=== PATIENT | female | born 1980 ===

== ENCOUNTER 2021-10-15 21:07 | Emergency (ER) | payer OTHER ==
[2021-10-15 21:16] VITALS: BP 136/98
[2021-10-15] MEDS ORDERED: methylPREDNISolone Sod Succinate 125 MG/2 ML INJ IM ONE (21:40)
[2021-10-15] MEDS ORDERED: FAMOTIDINE 20 MG TAB PO ONE (21:40)
[2021-10-15] MEDS ORDERED: hydrOXYzine PAMOATE 25 MG CAP PO ONE (21:40)
--- NOTE | 2021-10-15 23:14 | Emergency Department Report ---
ED Allergic Reaction HPI - General Chief complaint: Allergic Reaction Stated complaint: RASH/HIVES Source: patient Mode of arrival: Ambulatory Limitations: No Limitations - History of Present Illness Initial Comments: Patient is a 40-year-old female with no past medical history presented to the ED with complaint of acute onset persistent diffuse itchy erythematous maculopapular rashes for the last 2 months intermittently, worse in the last 24 hours. Patient states that she has been taking [id number] medications with no relief. Patient states that she has yet to identify the etiology of these rashes that appear to be intermittent, causing significant hives all over her body. Patient states that in the last 4 hours, the symptoms have worsened such that she has not been able to sleep or function. Patient states that she is currently visiting [place] for training for her job but resides in [place]. Patient denies dizziness, syncope, chest pain or shortness of breath, wheezing or cough, nausea and vomiting, diarrhea, abdominal pain, swollen lips or swollen tongue, dysphagia or dysphonia, facial swelling, nasal and sinus congestion, fever and chills. MD Complaint: allergic reaction, hives, other (Diffuse itchy erythematous maculopapular rashes) -: Sudden, month(s) (2) Exposure: unknown Symptoms: rash, itching. denies: facial swelling, lip swelling, difficulty swallowing, difficulty breathing, orolingual swelling, syncopy, dizziness, nausea, vomiting, other, abdominal pain Severity: severe Treatment Prior to Arrival: other (Zyrtec) Previous Allergy History: none - Related Data Previous Rx's Medication Instructions Recorded Last Taken Type Famotidine [Pepcid] 20 mg PO BID #60 tablet 10/15/21 Unknown Rx Prednisone [predniSONE 10 mg 10 mg PO .TAPER #1 tab.ds.pk 10/15/21 Unknown Rx (6-Day Pack, 21 Tabs)] hydrOXYzine PAMOATE [Vistaril] 25 mg PO Q6HR PRN #40 capsule 10/15/21 Unknown Rx Allergies Allergy/AdvReac Type Severity Reaction Status Date / Time No Known Allergies Allergy Verified 10/15/21 21:15 ED Review of Systems ROS: Stated complaint: RASH/HIVES Other details as noted in HPI Constitutional: denies: chills, fever Eyes: denies: eye pain, eye discharge, vision change ENT: denies: ear pain, throat pain Respiratory: denies: cough, shortness of breath, wheezing Cardiovascular: denies: chest pain, palpitations Endocrine: no symptoms reported Gastrointestinal: denies: abdominal pain, nausea, diarrhea Genitourinary: denies: urgency, dysuria, discharge Musculoskeletal: denies: back pain, joint swelling, arthralgia Skin: rash (Diffuse itchy erythematous maculopapular rashes), change in color, pruritus. denies: lesions Neurological: denies: headache, weakness, paresthesias Psychiatric: denies: anxiety, depression Hematological/Lymphatic: denies: easy bleeding, easy bruising ED Past Medical Hx - Past Medical History Previous Medical History?: No - Surgical History Past Surgical History?: No - Medications Home Medications: Home Medications Medication Instructions Recorded Confirmed Last Taken Type Famotidine [Pepcid] 20 mg PO BID #60 tablet 10/15/21 Unknown Rx Prednisone [predniSONE 10 mg 10 mg PO .TAPER #1 tab.ds.pk 10/15/21 Unknown Rx (6-Day Pack, 21 Tabs)] hydrOXYzine PAMOATE [Vistaril] 25 mg PO Q6HR PRN #40 capsule 10/15/21 Unknown Rx ED Physical Exam - General Limitations: No Limitations General appearance: alert, in no apparent distress - Head Head exam: Present: atraumatic, normocephalic, normal inspection - Eye Eye exam: Present: normal appearance, PERRL, EOMI Pupils: Present: normal accommodation - ENT ENT exam: Present: normal exam, normal orophraynx, mucous membranes moist, TM's normal bilaterally, normal external ear exam - Neck Neck exam: Present: normal inspection, full ROM. Absent: meningismus - Respiratory Respiratory exam: Present: normal lung sounds bilaterally. Absent: respiratory distress, wheezes, rales, rhonchi, chest wall tenderness, accessory muscle use - Cardiovascular Cardiovascular Exam: Present: regular rate, normal rhythm, normal heart sounds. Absent: systolic murmur, diastolic murmur, rubs, gallop - GI/Abdominal GI/Abdominal exam: Present: soft, normal bowel sounds. Absent: tenderness, guarding, rebound, hyperactive bowel sounds, hypoactive bowel sounds, organomegaly, mass - Extremities Exam Extremities exam: Present: normal inspection, full ROM, normal capillary refill - Back Exam Back exam: Present: normal inspection, full ROM. Absent: tenderness, CVA tenderness (R), CVA tenderness (L), muscle spasm, paraspinal tenderness, vertebral tenderness, rash noted - Neurological Exam Neurological exam: Present: alert, oriented X3, CN II-XII intact, normal gait, reflexes normal - Psychiatric Psychiatric exam: Present: normal affect, normal mood - Skin Skin exam: Present: warm, dry, intact, rash (Diffuse urticaria erythematous maculopapular rashes), erythema, urticaria ED Course Vital Signs 10/15/21 21:15 Temperature 98.1 F Pulse Rate 105 H Respiratory 18 Rate Blood Pressure 136/98 [Left] O2 Sat by Pulse 100 Oximetry ED Medical Decision Making - Medical Decision Making This is a 40-year-old female with no past medical history presented to the ED with complaint of acute onset persistent diffuse itchy erythematous maculopapular rashes for the last 2 months intermittently, worse in the last 24 hours. Patient states that she has been taking [id number] medications with no relief. Patient states that she has yet to identify the etiology of these rashes that appear to be intermittent, causing significant hives all over her body. Patient states that in the last 4 hours, the symptoms have worsened such that she has not been able to sleep or function. Patient states that she is currently visiting [place] for training for her job but resides in [place]. In the ED, patient is alert and oriented x3 and is not in any distress, tachycardic but afebrile in triage. Patient was treated in the ED with Solu-Medrol, Pepcid, and and Vistaril, and was observed in the ED for over 1 hour. On reevaluation, patient's itching and rash is improved significantly and resolved. Patient was discharged home on medications including oral steroids, Vistaril and Pepcid. Patient was advised to follow-up with her primary care physician in 7 to 10 days for reevaluation or return to the ED immediately if symptoms get worse. - Differential Diagnosis Urticaria; allergic reaction; anaphylaxis; irritant dermatitis; Critical care attestation.: If time is entered above; I have spent that time in minutes in the direct care of this critically ill patient, excluding procedure time. ED Disposition Clinical Impression: Acute allergic reaction, Acute urticaria, Itching with irritation Disposition: HOME / SELF CARE / HOMELESS Is pt being admited?: No Does the pt Need Aspirin: No Condition: Stable Instructions: Allergies, Adult, [id number], Rash, Adult, [id number], Hives, [id number], Pruritus Additional Instructions: Take medication with food, drink plenty of fluids and follow-up with your primary care physician in 7 to 10 days for reevaluation. Return to the ED immediately if symptoms get worse. Prescriptions: Famotidine [Pepcid] 20 mg PO BID #60 tablet Prednisone [predniSONE 10 mg (6-Day Pack, 21 Tabs)] 10 mg PO .TAPER #1 tab.ds.pk hydrOXYzine PAMOATE [Vistaril] 25 mg PO Q6HR PRN #40 capsule PRN Reason: Itching Referrals: [facility] [Provider Group] - 7-10 days Time of Disposition: 23:14 Print Language: NIGERIAN
== END 2021-10-16 00:05 | disposition home or self-care (01) ==
LOC: ED 21:07
DX: T78.40XA Allergy, unspecified, initial encounter (principal); L50.9 Urticaria, unspecified; X58.XXXA Exposure to other specified factors, initial encounter
CPT/HCPCS: 96372; 99282; J2930; Q0177; J3490